=== PATIENT | female | born 1985 | race African-American/Black ===

== ENCOUNTER 2017-07-16 19:44 | Emergency (ER) | payer BC ==
[~2017-07-16] VITALS: Ht 162.6 cm; Wt 61.2 kg
[2017-07-16 19:48] VITALS: BP 130/85
[2017-07-16] MEDS ORDERED: FLONASE 0.05%50 MCG NASAL (20:07)
[2017-07-16] MEDS ORDERED: AUGMENTIN 875-1 EACH PO (20:07)
== END 2017-07-16 20:24 | disposition home or self-care (01) ==
LOC: ER 19:44
DX: J32.9 Chronic sinusitis, unspecified (principal)

== ENCOUNTER 2019-03-01 17:18 | Emergency (ER) | payer BC, OTHER ==
[~2019-03-01] VITALS: Ht 160 cm; Wt 66.7 kg
[~2019-03-01 17:18] MED LIST: AUGMENTIN 875-1 EACH PO; FLONASE 0.05%50 MCG NASAL
[2019-03-01 18:33] VITALS: BP 139/69
== END 2019-03-01 18:34 | disposition home or self-care (01) ==
LOC: ER 17:18
DX: J02.0 Streptococcal pharyngitis (principal)

== ENCOUNTER 2019-06-05 08:46 | Emergency (ER) | payer BC, OTHER ==
[~2019-06-05] VITALS: Ht 160 cm; Wt 67.6 kg
[2019-06-05 09:03] LABS: URINE BILIRUBIN NEGATIVE (Negative); URINE BLOOD TRACE (Negative); URINE CLARITY CLEAR; URINE COLOR YELLOW; URINE GLUCOSE-RANDOM* NEGATIVE (Negative); URINE KETONES NEGATIVE (Negative); URINE LEUKOCYTES-REFLEX 3+ (Negative); URINE NITRITE-REFLEX NEGATIVE (Negative); URINE PROTEIN (DIPSTICK) NEGATIVE (Negative); URINE SPECIFIC GRAVITY 1.025 (1.005-1.035); URINE UROBILINOGEN 0.2 E.U./dl (0.2-1.0)
[2019-06-05 09:14] LABS: SQUAMOUS >10 Many /LPF (0-3)
[2019-06-05 09:15] LABS: CASTS None Seen /LPF (None Seen); CRYSTALS None Seen /LPF (None Seen); URINE RBC 0-2 Rare /HPF (0-2)
[2019-06-05 09:18] LABS: URINE WBC-REFLEX 6-15 Few /HPF (0-5); YEAST-REFLEX Present (None Seen)
[2019-06-05] MEDS ORDERED: 3-DAY VAGINAL C21 GM VAG (10:04)
[2019-06-05 10:15] VITALS: BP 122/78
== END 2019-06-05 10:18 | disposition home or self-care (01) ==
LOC: ER 08:46
PROVIDERS: Emergency Medicine
DX: N76.0 Acute vaginitis (principal); B37.3 Candidiasis of vulva and vagina

== ENCOUNTER 2020-01-22 11:48 | Emergency (ER) | payer BC, OTHER ==
[~2020-01-22] VITALS: Ht 162.6 cm; Wt 68.0 kg
[~2020-01-22 11:48] MED LIST changes: +3-DAY VAGINAL C21 GM VAG
[2020-01-22] MEDS ORDERED: NOHOMEMEDICATIONS (12:08)
[2020-01-22 12:22] LABS: URINE BLOOD 1+ (Negative); URINE CLARITY CLOUDY; URINE COLOR YELLOW; URINE GLUCOSE-RANDOM* NEGATIVE (Negative); URINE KETONES 2+ (Negative); URINE NITRITE-REFLEX NEGATIVE (Negative); URINE PROTEIN (DIPSTICK) TRACE (Negative); URINE SPECIFIC GRAVITY >= 1.030 (1.005-1.035)
[2020-01-22 12:24] LABS: ICTOTEST (BILI CONFIRMATORY) Negative (Negative); URINE BILIRUBIN NEGATIVE (Negative); URINE LEUKOCYTES-REFLEX 1+ (Negative)
[2020-01-22 12:37] LABS: BACTERIA-REFLEX >30 Many /HPF (None Seen); CASTS None Seen /LPF (None Seen); CRYSTALS None Seen /LPF (None Seen); SQUAMOUS >10 Many /LPF (0-3); URINE RBC None Seen /HPF (0-2); URINE WBC-REFLEX 6-15 Few /HPF (0-5)
[2020-01-22 12:56] LABS: ABSOLUTE NEUTROPHILS 3.5 thou/uL (1.4-8.2); BASOPHILS 0.8 % (0.0-2.0); EOSINOPHILS 0.2 % (0.0-3.0); HEMATOCRIT 39.9 % (37.0-47.0); HEMOGLOBIN 13.2 gm/dL (12.0-15.0); LYMPHOCYTES 33.7 % (24.0-44.0); MCHC 33.1 g/dL (28.0-37.0); MCV 90.5 fL (80.0-100.0); MONOCYTES 7.7 % (1.0-8.0); PLATELET COUNT 310 thou/uL (150-400); POLYS 57.6 % (36.0-66.0); RBC 4.41 mil/uL (4.20-5.00); RDW 14.8 % (10.5-14.5)
[2020-01-22 13:05] LABS: CALCIUM 8.9 mg/dL (8.5-10.1); POTASSIUM 3.4 mmol/L (3.5-5.1)
[2020-01-22 13:09] LABS: ALBUMIN 3.9 g/dL (3.4-5.0); DIRECT BILIRUBIN 0.2 mg/dL (<0.1-0.2); TOTAL PROTEIN 8.6 g/dL (6.4-8.2)
[2020-01-22] MEDS ORDERED: KEFLEX500 M1 PO (14:50)
[2020-01-22] MEDS ORDERED: ZOFRAN ODT4 MG PO (14:50)
[2020-01-22 14:57] VITALS: BP 121/74
== END 2020-01-22 14:57 | disposition home or self-care (01) ==
LOC: ER 11:48
PROVIDERS: Emergency Medicine
DX: N39.0 Urinary tract infection, site not specified (principal); R11.2 Nausea with vomiting, unspecified

== ENCOUNTER 2020-02-21 14:42 | Emergency (ER) | payer BC, OTHER ==
[~2020-02-21] VITALS: Ht 160 cm; Wt 63.5 kg
[~2020-02-21 14:42] MED LIST changes: +KEFLEX500 M1 PO; +NOHOMEMEDICATIONS; +ZOFRAN ODT4 MG PO
[2020-02-21 15:13] LABS: URINE BILIRUBIN NEGATIVE (Negative); URINE BLOOD NEGATIVE (Negative); URINE CLARITY CLEAR; URINE COLOR YELLOW; URINE GLUCOSE-RANDOM* NEGATIVE (Negative); URINE KETONES NEGATIVE (Negative); URINE LEUKOCYTES-REFLEX TRACE (Negative); URINE NITRITE-REFLEX NEGATIVE (Negative); URINE PROTEIN (DIPSTICK) NEGATIVE (Negative); URINE SPECIFIC GRAVITY 1.025 (1.005-1.035)
[2020-02-21 15:17] LABS: ABSOLUTE NEUTROPHILS 3.6 thou/uL (1.4-8.2); BASOPHILS 0.8 % (0.0-2.0); EOSINOPHILS 0.4 % (0.0-3.0); HEMATOCRIT 37.8 % (37.0-47.0); HEMOGLOBIN 12.8 gm/dL (12.0-15.0); LYMPHOCYTES 33.8 % (24.0-44.0); MCH 30.5 pg (26.0-34.0); MCHC 33.9 g/dL (28.0-37.0); MCV 90.1 fL (80.0-100.0); MONOCYTES 10.1 % (1.0-8.0); PLATELET COUNT 329 thou/uL (150-400); POLYS 54.9 % (36.0-66.0); RDW 14.8 % (10.5-14.5); WBC 6.6 thou/uL (4.0-11.0)
[2020-02-21 15:23] LABS: CALCIUM 8.8 mg/dL (8.5-10.1); CREATININE 1.1 mg/dL (0.6-1.0); POTASSIUM 3.2 mmol/L (3.5-5.1)
[2020-02-21 15:29] LABS: ALBUMIN 3.9 g/dL (3.4-5.0); TOTAL BILIRUBIN 1.2 mg/dL (0.2-1.0); TOTAL PROTEIN 7.8 g/dL (6.4-8.2)
[2020-02-21] MEDS ORDERED: PROMS25 WY RECTAL (16:05)
[2020-02-21 16:38] VITALS: BP 105/63
== END 2020-02-21 16:38 | disposition home or self-care (01) ==
LOC: ER 14:42
PROVIDERS: Physician Assistant
DX: R11.2 Nausea with vomiting, unspecified (principal); Z71.1 Person with feared health complaint in whom no diagnosis is made

== ENCOUNTER 2021-05-17 23:10 | Emergency (ER) | payer OTHER ==
[~2021-05-17] VITALS: Ht 160 cm; Wt 63.5 kg
[~2021-05-17 23:10] MED LIST changes: +PROMS25 WY RECTAL
[2021-05-18 00:21] LABS: URINE BILIRUBIN NEGATIVE (Negative); URINE BLOOD TRACE (Negative); URINE CLARITY CLEAR; URINE COLOR YELLOW; URINE GLUCOSE-RANDOM* NEGATIVE (Negative); URINE KETONES NEGATIVE (Negative); URINE LEUKOCYTES-REFLEX NEGATIVE (Negative); URINE NITRITE-REFLEX NEGATIVE (Negative); URINE PROTEIN (DIPSTICK) NEGATIVE (Negative); URINE SPECIFIC GRAVITY 1.025 (1.005-1.035); URINE UROBILINOGEN 0.2 E.U./dl (0.2-1.0)
[2021-05-18 01:30] VITALS: BP 152/74
[2021-05-18] MEDS ORDERED: DOXYCYCLINE 10100 MG PO (12:10)
[2021-05-20] MEDS ORDERED: DOXYCYCLINE 10100 MG PO (14:02)
== END 2021-05-18 01:43 | disposition home or self-care (01) ==
LOC: ER 23:10
PROVIDERS: Emergency Medicine
DX: N89.8 Other specified noninflammatory disorders of vagina (principal)